=== PATIENT | female | born 1980 | race Hispanic/Latino ===

== ENCOUNTER 2017-06-16 09:18 | Emergency (ER) | payer SELFPAY ==
[2017-06-16] MEDS ORDERED: IBUPROFEN 600 MG TABLET ONE (10:05)
[2017-06-16 10:36] LABS: RAPID GROUP A STREP POSITIVE (NEGATIVE)
== END 2017-06-16 11:13 | disposition home or self-care (01) ==
LOC: EDH 09:18
DX: J02.0 Streptococcal pharyngitis (principal); Z98.890 Other specified postprocedural states
CPT/HCPCS: 87804; 87880